=== PATIENT | male | born 1965 | race Caucasian/White ===

== ENCOUNTER → 2019-04-25 | Outpatient (REF) | payer OTHER, MEDICAID ==
[2019-04-25 13:28] LABS: BASO # 0.1 10^3/uL (0.0-0.2); BASO % 0.7 % (0.0-1.0); EOS # 0.2 10^3/uL (0.0-0.50); EOS % 1.6 % (0.0-3.0); HEMATOCRIT 48.3 % (42.0-52.0); HEMOGLOBIN 15.9 g/dl (13.5-17.5); LYMPH # 3.7 10^3/uL (1.5-4.5); LYMPH % 38.7 % (24.0-44.0); MEAN CORPUSCULAR HEMOGLOBIN 30.9 pg (27.0-33.0); MEAN CORPUSCULAR HGB CONC 32.9 g/dl (32.0-36.5); MEAN CORPUSCULAR VOLUME 93.8 fl (80.0-96.0); MONO # 0.9 10^3/uL (0.0-0.8); NEUTROPHILS # 4.7 10^3/uL (1.8-7.7); NEUTROPHILS % 49.7 % (36.0-66.0); PLATELET COUNT, AUTOMATED 350 10^3/uL (150-450); RED BLOOD COUNT 5.15 10^6/uL (4.30-6.10); WHITE BLOOD COUNT 9.5 10^3/uL (4.0-10.0)
[2019-04-25 13:41] LABS: ALBUMIN 3.6 GM/DL (3.2-5.2); ALT/SGPT 29 U/L (12-78); BILIRUBIN,TOTAL 0.2 MG/DL (0.2-1.0); BLOOD UREA NITROGEN 15 MG/DL (7-18); CALCIUM LEVEL 9.4 MG/DL (8.5-10.1); CARBON DIOXIDE LEVEL 32 MEQ/L (21-32); CHLORIDE LEVEL 102 MEQ/L (98-107); CHOLESTEROL LEVEL 180 MG/DL (<200); FREE T4 1.11 NG/DL (0.76-1.46); GLOMERULAR FILTRATION RATE > 60.0 (>56); GLUCOSE, FASTING 96 MG/DL (70-100); HDL CHOLESTEROL 36 MG/DL (>40); LDL CHOLESTEROL 103 MG/DL (<100); NON-HDL-C 144 MG/DL; POTASSIUM SERUM 4.3 MEQ/L (3.5-5.1); SODIUM LEVEL 138 MEQ/L (136-145); TOTAL 25(OH) VITAMIN D 11.5 NG/ML (30.0-100.0); TOTAL PROTEIN 7.7 GM/DL (6.4-8.2); TRIGLYCERIDES LEVEL 206 MG/DL (<150)
[2019-04-25 13:46] LABS: HEMOGLOBIN A1c 5.8 %
[2019-05-02 00:06] LABS: Lyme Disease IgG/IgM Antibodie <0.91 ISR (0.00-0.90); Lyme Disease IgM Ab Quantitati <0.80 index (0.00-0.79)
== END ==
LOC: M LAB REF 12:21
PROVIDERS: ATTEND Family Medicine
DX: Z13.228 Encounter for screening for other metabolic disorders (principal); Z12.5 Encounter for screening for malignant neoplasm of prostate; R35.8 Other polyuria; I10 Essential (primary) hypertension

== ENCOUNTER 2019-05-09 12:52 | Emergency (ER) | payer MEDICAID, OTHER ==
[~2019-05-09] VITALS: Ht 182.9 cm; Wt 98.5 kg
[2019-05-09] MEDS ORDERED: CLON-412 (13:09)
[2019-05-09] MEDS ORDERED: ZANTTAB PO (13:09)
[2019-05-09] MEDS ORDERED: LISI10TA4 (13:09)
[2019-05-09] MEDS ORDERED: cloNIDine 0.1 MG TAB PO ONE (15:00)
[2019-05-09] MEDS ORDERED: LISINOPRIL 10 MG TAB PO ONE (15:00)
[2019-05-09] MEDS ORDERED: CLOTCRE3 TOP (15:05)
[2019-05-09] MEDS ORDERED: KEFL500C17 PO (15:05)
[2019-05-09 15:13] LABS: BASO % 0.4 % (0.0-1.0); EOS # 0.1 10^3/uL (0.0-0.50); EOS % 0.9 % (0.0-3.0); HEMATOCRIT 47.1 % (42.0-52.0); LYMPH # 3.3 10^3/uL (1.5-4.5); LYMPH % 33.7 % (24.0-44.0); MEAN CORPUSCULAR HEMOGLOBIN 30.5 pg (27.0-33.0); MEAN CORPUSCULAR VOLUME 89.7 fl (80.0-96.0); MONO # 0.8 10^3/uL (0.0-0.8); MONO % 8.1 % (0.0-5.0); NEUTROPHILS # 5.6 10^3/uL (1.8-7.7); NEUTROPHILS % 56.7 % (36.0-66.0); PLATELET COUNT, AUTOMATED 280 10^3/uL (150-450); RED BLOOD COUNT 5.25 10^6/uL (4.30-6.10); WHITE BLOOD COUNT 9.9 10^3/uL (4.0-10.0)
[2019-05-09 15:22] VITALS: BP 178/120
[2019-05-09 16:02] VITALS: BP 126/94
== END 2019-05-09 16:01 | disposition home or self-care (01) ==
LOC: M ED 12:52
DX: N39.0 Urinary tract infection, site not specified (principal); N48.1 Balanitis; I10 Essential (primary) hypertension; K21.9 Gastro-esophageal reflux disease without esophagitis; Z72.0 Tobacco use; Z79.899 Other long term (current) drug therapy

== ENCOUNTER → 2019-05-15 | Outpatient (REF) | payer OTHER, MEDICAID ==
[~2019-05-15] MED LIST: CLON-412; CLOTCRE3 TOP; KEFL500C17 PO; LISI10TA4; ZANTTAB PO
[2019-05-15 13:53] LABS: APPEARANCE, URINE CLEAR (CLEAR); BACTERIA, URINE AUTO NEGATIVE (NEGATIVE); BILIRUBIN, URINE AUTO NEGATIVE (NEGATIVE); BLOOD, URINE BLOOD 2+ (NEGATIVE); COLOR, URINE YELLOW (YELLOW); GLUCOSE, URINE (UA) AUTO NEGATIVE (NEGATIVE); KETONE, URINE AUTO TRACE mg/dL (NEGATIVE); LEUKOCYTE ESTERASE, URINE AUTO NEGATIVE (NEGATIVE); MUCUS, URINE SMALL (NEGATIVE); NITRITE, URINE AUTO NEGATIVE (NEGATIVE); PROTEIN, URINE AUTO 2+ mg/dL (NEGATIVE); RBC, URINE AUTO 15 /HPF (0-3); SPECIFIC GRAVITY URINE AUTO 1.021 (1.002-1.035); SQUAMOUS EPITHELIAL CELL UR AU 0 /HPF (0-6); UROBILINOGEN, URINE AUTO 0.2 mg/dL (0.0-2.0); WBC, URINE AUTO 2 /HPF (0-3)
== END ==
LOC: M SMT 13:11
PROVIDERS: ATTEND Nurse Practitioner Women's Health
DX: R31.29 Other microscopic hematuria (principal)

== ENCOUNTER → 2019-05-17 | Outpatient (REF) | payer OTHER, MEDICAID | LOC: M LAB REF 16:43 | PROVIDERS: ATTEND Family Medicine | DX: Z13.228 Encounter for screening for other metabolic disorders (principal); Z12.5 Encounter for screening for malignant neoplasm of prostate; R35.8 Other polyuria; I10 Essential (primary) hypertension ==

== ENCOUNTER → 2019-06-28 | Outpatient (CLI) | payer MEDICAID, OTHER ==
[~2019-06-28] MED LIST changes: +ALBU8.5H; +CEFD1CAP8; +COMBAER6; +D 1010004 PO; +FLUT1INH3; +IBUP80TA; +ISOVUE-370 76% 100ML VIAL (Q9967) As Ordered ONE; +LISI-538 PO; +PRED10TA2; +STIO1AER; +ZANT150T40 PO; -ZANTTAB PO
--- NOTE | 2019-06-28 13:33 | REP ---
CT ABDOMEN AND PELVIS WITHOUT AND WITH CONTRAST: 06/28/2019. Clinical history: Urinary frequency. Technique: Precontrast imaging followed by bolus of 100 mL Isovue 370 and rescanning through the abdomen and pelvis at venous and delayed phases with coronal and sagittal reconstructions along with 3-D surface renderings rotated about the longitudinal axis. Findings: CT abdomen: No prior study. The lung bases are clear. Heart not enlarged. There is no hiatal hernia. No pericardial thickening or effusion. Liver and spleen are not enlarged. No hepatic mass, biliary dilatation or ascites. Gallbladder partially contracted. No calcified stone visible. Pancreas and adrenal glands are normal. Stomach with only minimal fluid within. Scattered diverticula within the abdominal portion of the colon without signs of diverticulitis, colitis, stricture or mass. Small bowel loops without abnormal dilatation. There is atherosclerotic calcification of the aorta with a maximum AP diameter just under 3 cm. No saccular aneurysm. No periaortic, retroperitoneal or mesenteric lymphadenopathy. Kidneys show no stone or definite solid mass. There is an upper pole cyst medially on the right about 2.1 cm. There is a small hyperdense cyst on the left best seen on image of 47 of series 201. No abnormal enhancement in this region. No perinephric edema. I see no hydronephrosis, hydroureter or ureteral stone. Bones shows spondylolysis L5 with grade 1 spondylolisthesis of L5 on S1 degenerative disc changes at L3-4 through L5-S1. No compression fractures. Visualized lower ribs intact. CT pelvis: Sacrum, SI joints, pelvis and hips with only minimal degenerative change and no destructive lesion or fracture. Ureters without dilatation or stone. Bladder is without wall thickening, mass, filling defect or stone. There is diverticulosis of the distal left colon and sigmoid without definite diverticulitis. No colitis, stricture or mass. Small bowel loops mostly fluid-filled not abnormally dilated. There are no inflammatory changes about the cecum. No ventral or inguinal hernia nor pelvic adenopathy. CT urogram: Those images show no hydronephrosis or mass effect on the collecting system. Course of the right ureter is seen from proximal to distal portion in the upper pelvis with poor visualization of the left ureter by comparison although no dilatation. No bladder wall thickening mass or stone. Impression: 1. There is no renal, ureteral or bladder stone nor solid mass. 2. Small hyperdense cyst interpolar region of the left kidney and simple cyst upper pole right kidney. No hydronephrosis or hydroureter. No perinephric fluid. Abdomen and pelvis without any acute finding. Electronically Signed by Elmer Spaulding MD 06/28/2019 03:07 P
== END ==
LOC: M RAD 09:43
PROVIDERS: ATTEND Specialist
DX: R35.0 Frequency of micturition (principal); N28.1 Cyst of kidney, acquired
CPT/HCPCS: 74178; Q9967

== ENCOUNTER → 2019-07-26 | Outpatient (CLI) | payer OTHER ==
[~2019-07-26] MED LIST changes: -CEFD1CAP8; -D 1010004 PO; -IBUP80TA; -ISOVUE-370 76% 100ML VIAL (Q9967) As Ordered ONE; -LISI-538 PO; -STIO1AER
[2019-07-26 09:56] LABS: APPEARANCE, URINE CLEAR (CLEAR); BACTERIA, URINE AUTO NEGATIVE (NEGATIVE); BILIRUBIN, URINE AUTO NEGATIVE (NEGATIVE); BLOOD, URINE BLOOD 2+ (NEGATIVE); COLOR, URINE YELLOW (YELLOW); GLUCOSE, URINE (UA) AUTO NEGATIVE (NEGATIVE); KETONE, URINE AUTO TRACE mg/dL (NEGATIVE); LEUKOCYTE ESTERASE, URINE AUTO NEGATIVE (NEGATIVE); MUCUS, URINE SMALL (NEGATIVE); NITRITE, URINE AUTO NEGATIVE (NEGATIVE); PROTEIN, URINE AUTO 1+ mg/dL (NEGATIVE); RBC, URINE AUTO 6 /HPF (0-3); SPECIFIC GRAVITY URINE AUTO 1.023 (1.002-1.035); SQUAMOUS EPITHELIAL CELL UR AU 0 /HPF (0-6); UROBILINOGEN, URINE AUTO 0.2 mg/dL (0.0-2.0); WBC, URINE AUTO 1 /HPF (0-3)
[2019-07-26 09:59] LABS: BASO # 0.1 10^3/uL (0.0-0.2); BASO % 0.4 % (0.0-1.0); EOS # 0.1 10^3/uL (0.0-0.5); EOS % 1.1 % (0.0-3.0); HEMATOCRIT 45.1 % (42.0-52.0); HEMOGLOBIN 15.2 g/dl (13.5-17.5); LYMPH % 24.7 % (24.0-44.0); MEAN CORPUSCULAR HEMOGLOBIN 31.1 pg (27.0-33.0); MEAN CORPUSCULAR HGB CONC 33.7 g/dl (32.0-36.5); MEAN CORPUSCULAR VOLUME 92.2 fl (80.0-96.0); MONO # 1.1 10^3/uL (0.0-0.8); MONO % 8.8 % (0.0-5.0); NEUTROPHILS # 7.9 10^3/uL (1.5-8.5); NEUTROPHILS % 64.7 % (36.0-66.0); PLATELET COUNT, AUTOMATED 286 10^3/uL (150-450); RED BLOOD COUNT 4.89 10^6/uL (4.30-6.10); WHITE BLOOD COUNT 12.2 10^3/uL (4.0-10.0)
[2019-07-26 10:09] LABS: PROTHROMBIN TIME 12.9 SECONDS (11.8-14.0)
[2019-07-26 10:21] LABS: BLOOD UREA NITROGEN 16 MG/DL (7-18); CALCIUM LEVEL 9.4 MG/DL (8.5-10.1); CARBON DIOXIDE LEVEL 29 MEQ/L (21-32); CHLORIDE LEVEL 104 MEQ/L (98-107); CREATININE FOR GFR 1.05 MG/DL (0.70-1.30); GLOMERULAR FILTRATION RATE > 60.0 (>56); GLUCOSE, FASTING 101 MG/DL (70-100); POTASSIUM SERUM 4.4 MEQ/L (3.5-5.1); SODIUM LEVEL 137 MEQ/L (136-145)
--- NOTE | 2019-07-26 19:24 | ECGEPIP ---
[facility] Test Date: 2019-07-26 Pat Name: PJ FARAH Department: Room: - Gender: Male Assistant Restaurant General Manager: MONTY : 1965 Requested By: Winston Minor Order Number: [id number] Reading MD: Leno Vale Measurements Intervals [place] Rate: 85 P: 44 [place]: 118 QRS: 233 QRSD: 145 T: 54 QT: 357 QTc: 425 Interpretive Statements SINUS RHYTHM WITH SHORT [place] INTERVAL INDETERMINATE AXIS RIGHT BUNDLE BRANCH BLOCK LEFT POSTERIOR FASCICULAR BLOCK No prior tracing for comparison Electronically Signed on 07-26-2019 19:23:55 EDT by Leno Vale
== END ==
LOC: M LAB 08:55
PROVIDERS: ATTEND Urology
DX: R31.29 Other microscopic hematuria (principal)

== ENCOUNTER → 2019-07-30 | Outpatient (CLI) | payer OTHER ==
--- NOTE | 2019-07-30 13:04 | REP ---
CHEST X-RAY: THREE VIEWS. HISTORY: Dyspnea. No comparison study. FINDINGS: There is marked hyperinflation consistent with advanced COPD. The upper lobes are particularly hyperinflated and hyperlucent with emphysematous change and oligemia. The pleural angles are sharp. No localized infiltrate is seen. The heart is not enlarged. No significant bony abnormality is seen. IMPRESSION: Findings consistent with advanced emphysema COPD. Hyperinflation, hyperlucency, and oligemia throughout the upper lobes bilaterally. Electronically Signed by Ravindra Kumar MD 07/30/2019 01:08 P
== END ==
LOC: M SMT 11:42
PROVIDERS: ATTEND Physician Assistant
DX: R06.00 Dyspnea, unspecified (principal); R91.8 Other nonspecific abnormal finding of lung field

== ENCOUNTER 2019-08-05 11:21 | Day surgery (SDC) | payer MEDICAID, OTHER ==
[~2019-08-05] VITALS: Ht 182.9 cm; Wt 100.2 kg
[2019-08-05] MEDS ORDERED: ONDANSETRON 4MG/2ML VIAL (J2405) As Ordered ONE (13:59)
[2019-08-05] MEDS ORDERED: dexameTHASONE 4 MG/ML 1ML VIAL (J1100) As Ordered ONE (13:59)
[2019-08-05] MEDS ORDERED: LIDOCAINE 2% INJ 100 MG/5 ML SDV (FOR ANES.) As Ordered ONE (13:59)
[2019-08-05] MEDS ORDERED: ROCURONIUM BROMIDE 50 MG/5 ML VIAL As Ordered ONE ×2 (13:59→14:26)
[2019-08-05] MEDS ORDERED: fentaNYL 100 MCG/2 ML INJECTION (J3010) As Ordered ONE ×2 (13:59→14:27)
[2019-08-05] MEDS ORDERED: PROPOFOL 200 MG/20 ML VIAL As Ordered ONE (13:59)
[2019-08-05] MEDS ORDERED: MIDAZOLAM INJ 2 MG/2 ML VIAL (J2250) As Ordered ONE (13:59)
[2019-08-05] MEDS ORDERED: METOCLOPRAMIDE INJ 10MG/2ML VIAL (J2765) As Ordered ONE (13:59)
[2019-08-05] MEDS ORDERED: SUGAMMADEX SODIUM 500 MG/5 ML VIAL (BRIDION) As Ordered ONE (13:59)
[2019-08-05] MEDS ORDERED: LABETALOL HCL 100 MG/20 ML VIAL As Ordered ONE (14:12)
[2019-08-05] MEDS ORDERED: LIDOCAINE 2% JELLY 6 ML SYRINGE As Ordered ONE (14:12)
[2019-08-05] MEDS ORDERED: ACETAMINOPHEN 1000MG 100ML IV BTL (OFIRMEV) (J0131 PER 10MG) As Ordered ONE (14:18)
[2019-08-05] MEDS ORDERED: ALBUTEROL 6.7GM INHALER **FOR ANES. CART/OMNICELL ONLY As Ordered ONE (14:36)
[2019-08-05] MEDS ORDERED: PERCOCET 5MG/325MG TAB PO PRN (15:15)
[2019-08-05] MEDS ORDERED: ACETAMINOPHEN TAB 650MG DOSE (2X325MG) PO PRN (15:15)
[2019-08-05] MEDS ORDERED: fentaNYL 100 MCG/2 ML INJECTION (J3010) IV PRN (15:15)
[2019-08-05] MEDS ORDERED: ONDANSETRON 4MG/2ML VIAL (J2405) IV PRN (15:15)
[2019-08-05] MEDS ORDERED: LR 1,000 ML IV SCH (15:15)
[2019-08-05] MEDS ORDERED: hydrALAZINE INJ 20 MG/ML VIAL As Ordered ONE (15:23)
[2019-08-05] MEDS: hydrALAZINE INJ 20 MG/ML VIAL IV PRN ×4 (15:25→15:40)
[2019-08-05 15:40] VITALS: BP 140/101
[2019-08-05 16:21] VITALS: BP 170/100
--- NOTE | 2019-08-06 10:41 | RO ---
DATE OF PROCEDURE: 08/05/2019 PREPROCEDURE DIAGNOSIS: Bladder tumor. POSTPROCEDURE DIAGNOSIS: Bladder tumor. PROCEDURE: Cystoscopy, transurethral resection of bladder tumor (less than 2 cm). SURGEON: Cl Lawson. OYSTER PREPARER: None. ANESTHESIA: General. OPERATIVE INDICATIONS: This is a 53-year-old male who was found to have a small patch of a papillary tumors on the anterior wall just inside the bladder neck at 1 o'clock. He was brought to the operating room today for treatment. DESCRIPTION OF PROCEDURE: The patient was brought to the operating room and general anesthesia was induced. Prophylactic antibiotics were infused. He was then placed in a dorsal lithotomy position and prepped and draped in the usual sterile fashion. A rigid cystoscope was inserted into the urethral meatus and advanced into the bladder. The bladder was thoroughly examined both a 30 and a 70 degree lens and the only abnormality seen was a very small patch of papillary tumors at 1 o'clock just inside the bladder neck. The cystoscope was then removed and the resectoscope was inserted into the urethral meatus and advanced into the bladder using the visual stapling machine operator. Then using a Gyrus loop the patch of tumors was completely resected. The base of resection was cauterized using a coagulation current. Once there was good hemostasis the specimen was extracted from the bladder and then the bladder was then emptied of all fluids and this marked the conclusion of the procedure. The resectoscope was then removed and then the patient was taken out of dorsal lithotomy position, awakened from anesthesia and transported to recovery room in stable condition. ESTIMATED BLOOD LOSS: 5 mL. COMPLICATIONS: None. SPECIMENS: Bladder tumors. PLAN: The patient will followup in the clinic in approximately 1 week for pathology results. RHINA
== END 2019-08-05 16:29 | disposition home or self-care (01) ==
LOC: M SDC 11:21
PROVIDERS: ATTEND Urology
DX: D49.4 Neoplasm of unspecified behavior of bladder (principal); I10 Essential (primary) hypertension; J44.9 Chronic obstructive pulmonary disease, unspecified; F17.210 Nicotine dependence, cigarettes, uncomplicated; Z79.51 Long term (current) use of inhaled steroids; Z79.52 Long term (current) use of systemic steroids; Z79.899 Other long term (current) drug therapy
CPT/HCPCS: 52234; 88305; J0131; J0690; J1100; J2250; J2405; J2765; J3010

== ENCOUNTER → 2019-08-22 | Outpatient (CLI) | payer OTHER ==
--- NOTE | 2019-08-22 08:26 | PFTRPT ---
Height: 71.00 Inches Weight: 220.00 Lbs BSA: 2.20 Diagnosis: R06.00 DATE OF PROCEDURE: 08/22/2019 ORDERED BY: Dr. Nic Oseguera Spirometry: Pre and post bronchodilator study of excellent technical quality. Forced vital capacity reduced. FEV1 out of proportion. Obstructive index is, therefore, reduced. Flow Volume Loop: Expiratory limb of the flow volume loop consistent with flow rate limitation. No significant bronchodilator response identified. Lung Volumes: Total lung capacity elevated. Residual volume is consistent with significant air trapping. Diffusing Capacity: Diffusing capacity severely reduced and does not correct for alveolar volume. Hemoglobin: Hemoglobin acceptable at 12.9. Airway Mechanics: Airway resistance and conductance are normal. IMPRESSION: Severe obstructive ventilatory impairment with underlying air trapping and suspected emphysema. No bronchodilator response. Please correlate clinically. MTDD
== END ==
LOC: M CARPUL 07:20
PROVIDERS: ATTEND Internal Medicine Pulmonary Disease
DX: R06.00 Dyspnea, unspecified (principal)

== ENCOUNTER 2019-10-06 05:13 | Emergency (ER) | payer OTHER ==
[~2019-10-06] VITALS: Ht 182.9 cm; Wt 100.0 kg
[2019-10-06] MEDS ORDERED: LISI-538 PO (05:23)
[2019-10-06] MEDS ORDERED: STIO1AER (05:23)
[2019-10-06] MEDS ORDERED: D 1010004 PO (05:23)
[2019-10-06] MEDS ORDERED: IBUP80TA (05:23)
[2019-10-06] MEDS ORDERED: CEFD1CAP8 (05:23)
[2019-10-06 06:03] LABS: BASO % 0.3 % (0.0-1.0); EOS % 0.2 % (0.0-3.0); HEMATOCRIT 40.9 % (42.0-52.0); HEMOGLOBIN 13.7 g/dl (13.5-17.5); LYMPH # 1.8 10^3/uL (1.5-5.0); LYMPH % 15.2 % (24.0-44.0); MEAN CORPUSCULAR HEMOGLOBIN 31.5 pg (27.0-33.0); MEAN CORPUSCULAR HGB CONC 33.5 g/dl (32.0-36.5); MONO # 0.8 10^3/uL (0.0-0.8); MONO % 7.1 % (0.0-5.0); NEUTROPHILS # 9.1 10^3/uL (1.5-8.5); NEUTROPHILS % 76.8 % (36.0-66.0); PLATELET COUNT, AUTOMATED 337 10^3/uL (150-450); RED BLOOD COUNT 4.35 10^6/uL (4.30-6.10); WHITE BLOOD COUNT 11.9 10^3/uL (4.0-10.0)
--- NOTE | 2019-10-06 06:10 | REPVR ---
PROCEDURE INFORMATION: Exam: CT Head Without Contrast Exam date and time: 10/06/2019 6:00 AM Clinical history: 53 years old, male; Syncope and collapse TECHNIQUE: Imaging protocol: Computed tomography of the head without contrast. Radiation optimization: All CT scans at this facility use at least one of these dose optimization techniques: automated exposure control; mA and/or kV adjustment per patient size (includes targeted exams where dose is matched to clinical indication); or iterative reconstruction. COMPARISON: No relevant prior studies available. FINDINGS: Brain: Diffuse mild cerebral age related volume loss. Mild patchy low attenuation in the white matter compatible with mild chronic small vessel ischemic disease. No midline shift, mass, fluid collection, or evidence of hemorrhage. Ventricles: Ventricular enlargement proportional to volume loss. Bones/joints: Unremarkable. No acute fracture. Sinuses: Visualized sinuses are unremarkable. No fluid levels. Mastoid air cells: Visualized mastoid air cells are well aerated. Soft tissues: Unremarkable. Vasculature: Left MCA 1.4 cm aneurysm. IMPRESSION: 1. Mild involutional changes, no acute intracranial abnormality. 2. Left MCA 1.4 cm aneurysm. Recommend CTA followup. Electronically signed by: Brian Padron On 10/06/2019 06:10:14 AM
[2019-10-06 06:14] VITALS: BP 174/120
[2019-10-06 06:22] LABS: BLOOD UREA NITROGEN 13 MG/DL (7-18); CALCIUM LEVEL 8.3 MG/DL (8.5-10.1); CARBON DIOXIDE LEVEL 28 MEQ/L (21-32); CHLORIDE LEVEL 103 MEQ/L (98-107); CK-MB VALUE MASS 2.7 NG/ML (<3.6); CPK CREATINE PHOSPHOKINASE 116 U/L (39-308); CREATININE FOR GFR 1.06 MG/DL (0.70-1.30); GLOMERULAR FILTRATION RATE > 60.0 (>56); GLUCOSE, FASTING 173 MG/DL (70-100); MB/CK RELATIVE INDEX 2.33 (< OR =4); POTASSIUM SERUM 3.8 MEQ/L (3.5-5.1); SODIUM LEVEL 140 MEQ/L (136-145); TROPONIN I < 0.02 NG/ML (< 0.10)
[2019-10-06] MEDS ORDERED: POTASSIUM CHLORIDE 10 MEQ SR TABLET PO ONE (06:30)
[2019-10-06] MEDS ORDERED: ISOVUE-370 76% 100ML VIAL (Q9967) As Ordered ONE (06:31)
[2019-10-06] MEDS ORDERED: ADACEL/BOOSTRIX VACCINE (DIPHTH/PERTUSS/ACELL/TETANUS)0.5ML SYR (90715) IM ONE (07:00)
[2019-10-06] MEDS ORDERED: cloNIDine 0.1 MG TAB PO ONE (07:00)
--- NOTE | 2019-10-06 07:02 | REPVR ---
PROCEDURE INFORMATION: Exam: CT Angiography Head With Contrast Exam date and time: 10/06/2019 6:41 AM Clinical history: 53 years old, male; Syncope and collapse; Additional info: Syncope, aneurysm TECHNIQUE: Imaging protocol: Computed tomography angiography of the head with intravenous contrast. 3D rendering: MIP reconstructed images were created and reviewed. Radiation optimization: All CT scans at this facility use at least one of these dose optimization techniques: automated exposure control; mA and/or kV adjustment per patient size (includes targeted exams where dose is matched to clinical indication); or iterative reconstruction. Contrast material: ISOVUE 370; Contrast volume: 75 ml; Contrast route: IV; COMPARISON: CT Head without contrast 10/06/2019 5:58 AM FINDINGS: Right internal carotid artery: Unremarkable. Intracranial segment is patent with no significant stenosis. No aneurysm. Right anterior cerebral artery: Unremarkable. No occlusion or significant stenosis. No aneurysm. Right middle cerebral artery: Unremarkable. No occlusion or significant stenosis. No aneurysm. Right posterior cerebral artery: Unremarkable. No occlusion or significant stenosis. No aneurysm. Right vertebral artery: Unremarkable. No occlusion or significant stenosis. No aneurysm. Left internal carotid artery: Unremarkable. Intracranial segment is patent with no significant stenosis. No aneurysm. Left anterior cerebral artery: Unremarkable. No occlusion or significant stenosis. No aneurysm. Left middle cerebral artery: Distal left M1 aneurysm protruding caudally toward the anteromedial left temporal lobe with an ovoid configuration measuring approximately 12 mm in length and 6 x 6 mm in diameter toward the tip. Left posterior cerebral artery: Unremarkable. No occlusion or significant stenosis. No aneurysm. Left vertebral artery: Unremarkable. No occlusion or significant stenosis. No aneurysm. Basilar artery: Unremarkable. No occlusion or significant stenosis. No aneurysm. HEAD: Sinuses: Left maxillary sinus mucosal thickening and near-complete opacification of the left sphenoid sinus. IMPRESSION: 1. Large aneurysm protruding caudally from the distal left M1 segment toward the anteromedial left temporal lobe measuring 6 x 6 x 12 mm. 2. Left maxillary and left sphenoid sinus disease. 3. Otherwise negative CTA head. Electronically signed by: Ashu Ontiveros On 10/06/2019 07:02:27 AM
[2019-10-06 07:25] VITALS: BP 195/113
--- NOTE | 2019-10-06 08:25 | REP ---
Portable chest x-ray: Single view. History: Syncope. Comparison chest x-ray: July 30, 2019. A cyst findings: The lungs overall are hyperinflated. No infiltrate is seen. Emphysematous changes and oligemia are noted in the upper lung zones. There is some mild interstitial fibrotic changes in the bases. The heart is not enlarged. No focal infiltrate. Monitoring electrodes are seen. Impression: Evidence of COPD. No focal infiltrate. Electronically Signed by Ravindra Kumar MD 10/06/2019 08:17 A
--- NOTE | 2019-10-06 12:15 | ECGEPIP ---
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
== END 2019-10-06 08:00 | disposition left against medical advice (07) ==
LOC: M ED 05:13
DX: R55 Syncope and collapse (principal); E87.6 Hypokalemia; S01.81XA Laceration without foreign body of other part of head, initial encounter; W18.39XA Other fall on same level, initial encounter; Y92.018 Other place in single-family (private) house as the place of occurrence of the external cause; I67.1 Cerebral aneurysm, nonruptured; I45.10 Unspecified right bundle-branch block; I10 Essential (primary) hypertension; J44.9 Chronic obstructive pulmonary disease, unspecified; K21.9 Gastro-esophageal reflux disease without esophagitis; Z79.899 Other long term (current) drug therapy; F17.210 Nicotine dependence, cigarettes, uncomplicated
CPT/HCPCS: 12002; 70450; 70496; 71045; 80047; 80048; 82550; 82553; 83605; 84443; 85025; 90471; 90715; 93005; 93041; 94760; 99291; Q9967

== ENCOUNTER → 2019-12-03 | Outpatient (CLI) | payer OTHER ==
[~2019-12-03] MED LIST changes: +CEFD1CAP8; +D 1010004 PO; +IBUP80TA; +LISI-538 PO; +STIO1AER
--- NOTE | 2019-12-04 06:16 | REP ---
Clinical: Lung screening. History smoking. Comparison: None Technique: Axial low-dose noncontrast images from the thoracic inlet to the upper abdomen using lung screening technique. Findings: The lung sloan demonstrate advanced emphysematous disease. No consolidation, significant nodule or mass lesion is appreciated. No pleural effusion/reaction or pneumothorax. Tracheobronchial tree is patent. Mediastinum demonstrates mild atherosclerotic changes of the coronary arteries without cardiomegaly. Impression: Lung-RADS category I. Advanced emphysematous disease. No nodule or suspicious abnormality. Electronically Signed by Isac Webb MD 12/04/2019 06:08 A
== END ==
LOC: M RAD 14:43
PROVIDERS: ATTEND Physician Assistant
DX: Z12.2 Encounter for screening for malignant neoplasm of respiratory organs (principal); F17.218 Nicotine dependence, cigarettes, with other nicotine-induced disorders

== ENCOUNTER → 2020-01-07 | Outpatient (CLI) | payer OTHER ==
[2020-01-07 15:52] LABS: BASO # 0.1 10^3/uL (0.0-0.2); BASO % 0.5 % (0.0-1.0); EOS # 0.4 10^3/uL (0.0-0.5); EOS % 3.7 % (0.0-3.0); HEMATOCRIT 46.4 % (42.0-52.0); HEMOGLOBIN 15.7 g/dl (13.5-17.5); LYMPH # 3.2 10^3/uL (1.5-5.0); LYMPH % 32.5 % (24.0-44.0); MEAN CORPUSCULAR HEMOGLOBIN 30.8 pg (27.0-33.0); MEAN CORPUSCULAR HGB CONC 33.8 g/dl (32.0-36.5); MEAN CORPUSCULAR VOLUME 91.2 fl (80.0-96.0); MONO # 0.8 10^3/uL (0.0-0.8); MONO % 8.5 % (0.0-5.0); NEUTROPHILS # 5.3 10^3/uL (1.5-8.5); NEUTROPHILS % 54.5 % (36.0-66.0); PLATELET COUNT, AUTOMATED 283 10^3/uL (150-450); RED BLOOD COUNT 5.09 10^6/uL (4.30-6.10); WHITE BLOOD COUNT 9.7 10^3/uL (4.0-10.0)
[2020-01-07 16:02] LABS: INR 1.02; PROTHROMBIN TIME 13.1 SECONDS (11.8-14.0)
[2020-01-07 16:03] LABS: PARTIAL THROMBOPLASTIN TIME 32.5 SECONDS (25.0-38.4)
[2020-01-07 16:19] LABS: BLOOD UREA NITROGEN 19 MG/DL (7-18); CALCIUM LEVEL 9.2 MG/DL (8.5-10.1); CARBON DIOXIDE LEVEL 26 MEQ/L (21-32); CHLORIDE LEVEL 109 MEQ/L (98-107); CREATININE FOR GFR 0.95 MG/DL (0.70-1.30); GLOMERULAR FILTRATION RATE > 60.0 (>56); GLUCOSE, FASTING 91 MG/DL (70-100); POTASSIUM SERUM 4.6 MEQ/L (3.5-5.1); SODIUM LEVEL 138 MEQ/L (136-145)
== END ==
LOC: M LAB 15:21
PROVIDERS: ATTEND Neurological Surgery
DX: I67.1 Cerebral aneurysm, nonruptured (principal)

== ENCOUNTER → 2020-04-02 | Outpatient (CLI) | payer OTHER ==
[2020-04-02 18:33] LABS: BASO % 0.3 % (0.0-1.0); EOS # 0.3 10^3/uL (0.0-0.5); EOS % 3.5 % (0.0-3.0); HEMATOCRIT 43.2 % (42.0-52.0); HEMOGLOBIN 14.8 g/dl (13.5-17.5); LYMPH % 32.1 % (24.0-44.0); MEAN CORPUSCULAR HEMOGLOBIN 31.4 pg (27.0-33.0); MEAN CORPUSCULAR HGB CONC 34.3 g/dl (32.0-36.5); MEAN CORPUSCULAR VOLUME 91.7 fl (80.0-96.0); MONO # 0.8 10^3/uL (0.0-0.8); MONO % 8.3 % (0.0-5.0); NEUTROPHILS # 5.2 10^3/uL (1.5-8.5); NEUTROPHILS % 55.3 % (36.0-66.0); PLATELET COUNT, AUTOMATED 323 10^3/uL (150-450); RED BLOOD COUNT 4.71 10^6/uL (4.30-6.10); WHITE BLOOD COUNT 9.4 10^3/uL (4.0-10.0)
[2020-04-02 18:45] LABS: INR 0.99; PROTHROMBIN TIME 12.8 SECONDS (11.8-14.0)
[2020-04-02 19:01] LABS: ALBUMIN 3.9 GM/DL (3.2-5.2); ALT/SGPT 21 U/L (12-78); BILIRUBIN,TOTAL 0.7 MG/DL (0.2-1.0); BLOOD UREA NITROGEN 27 MG/DL (7-18); CALCIUM LEVEL 8.8 MG/DL (8.5-10.1); CARBON DIOXIDE LEVEL 23 MEQ/L (21-32); CHLORIDE LEVEL 103 MEQ/L (98-107); CREATININE FOR GFR 1.26 MG/DL (0.70-1.30); GLOMERULAR FILTRATION RATE > 60.0 (>56); GLUCOSE, FASTING 82 MG/DL (70-100); POTASSIUM SERUM 4.1 MEQ/L (3.5-5.1); SODIUM LEVEL 135 MEQ/L (136-145); TOTAL PROTEIN 7.8 GM/DL (6.4-8.2)
== END ==
LOC: M LAB 16:51
PROVIDERS: ATTEND Family Medicine
DX: I67.1 Cerebral aneurysm, nonruptured (principal)

== ENCOUNTER → 2020-05-28 | Outpatient (REF) | payer OTHER, MEDICAID ==
[2020-05-28 15:53] LABS: BASO # 0.1 10^3/uL (0.0-0.2); BASO % 0.6 % (0.0-1.0); EOS # 0.2 10^3/uL (0.0-0.5); EOS % 2.4 % (0.0-3.0); HEMATOCRIT 41.9 % (42.0-52.0); HEMOGLOBIN 14.6 g/dl (13.5-17.5); LYMPH # 2.9 10^3/uL (1.5-5.0); LYMPH % 29.1 % (24.0-44.0); MEAN CORPUSCULAR HEMOGLOBIN 32.3 pg (27.0-33.0); MEAN CORPUSCULAR HGB CONC 34.8 g/dl (32.0-36.5); MEAN CORPUSCULAR VOLUME 92.7 fl (80.0-96.0); MONO # 0.8 10^3/uL (0.0-0.8); NEUTROPHILS # 5.8 10^3/uL (1.5-8.5); NEUTROPHILS % 59.3 % (36.0-66.0); PLATELET COUNT, AUTOMATED 306 10^3/uL (150-450); RED BLOOD COUNT 4.52 10^6/uL (4.30-6.10); WHITE BLOOD COUNT 9.8 10^3/uL (4.0-10.0)
[2020-05-28 16:02] LABS: INR 1.02; PROTHROMBIN TIME 13.1 SECONDS (11.8-14.0)
[2020-05-28 16:20] LABS: ALBUMIN 3.8 GM/DL (3.2-5.2); ALT/SGPT 21 U/L (12-78); BILIRUBIN,TOTAL 0.3 MG/DL (0.2-1.0); BLOOD UREA NITROGEN 22 MG/DL (7-18); CALCIUM LEVEL 9.2 MG/DL (8.5-10.1); CARBON DIOXIDE LEVEL 26 MEQ/L (21-32); CHLORIDE LEVEL 104 MEQ/L (98-107); CREATININE FOR GFR 1.27 MG/DL (0.70-1.30); GLOMERULAR FILTRATION RATE > 60.0 (>56); GLUCOSE, FASTING 84 MG/DL (70-100); POTASSIUM SERUM 4.2 MEQ/L (3.5-5.1); SODIUM LEVEL 137 MEQ/L (136-145); TOTAL PROTEIN 7.3 GM/DL (6.4-8.2)
== END ==
LOC: M LAB REF 15:10
PROVIDERS: ATTEND Family Medicine Addiction Medicine
DX: Z01.812 Encounter for preprocedural laboratory examination (principal); I67.1 Cerebral aneurysm, nonruptured

== ENCOUNTER → 2020-06-02 | Outpatient (CLI) | payer OTHER | LOC: M LABSMTC 11:22 | PROVIDERS: ATTEND Neurological Surgery | DX: Z11.59 Encounter for screening for other viral diseases (principal) | CPT/HCPCS: C9803; U0003 ==

== ENCOUNTER → 2020-12-04 | Outpatient (CLI) | payer OTHER ==
[~2020-12-04] MED LIST changes: -LISI-538 PO; +LISI10TA22; -LISI10TA4; +LISI20TA33 PO
--- NOTE | 2020-12-06 09:05 | REP ---
INDICATION: NICOTINE DEPENDENCE COMPARISON: 12/03/2019, 10/06/2019 TECHNIQUE: Axial noncontrast images from the thoracic inlet to the upper abdomen using low-dose lung screening technique (LDCT). FINDINGS: Advanced COPD/emphysematous changes with minimal scattered scarring again noted. No consolidation, significant nodule or mass lesion. No pleural effusion. No pneumothorax. Tracheobronchial tree is patent. IMPRESSION: Lung-RADS category 1. No suspicious nodule or mass. Chronic emphysematous changes noted. Management recommendations include annual low-dose CT evaluation <Electronically signed by Isac Webb > 12/06/20 0901
== END ==
LOC: M RAD 13:37
PROVIDERS: ATTEND Physician Assistant
DX: Z12.2 Encounter for screening for malignant neoplasm of respiratory organs (principal); F17.218 Nicotine dependence, cigarettes, with other nicotine-induced disorders

== ENCOUNTER → 2021-02-17 | Outpatient (CLI) | payer OTHER | LOC: M LABSMTC 11:28 | PROVIDERS: ATTEND Neurological Surgery | DX: Z01.818 Encounter for other preprocedural examination (principal); Z20.822 Contact with and (suspected) exposure to COVID-19; I67.1 Cerebral aneurysm, nonruptured ==

== ENCOUNTER → 2021-02-17 | Outpatient (CLI) | payer OTHER ==
[2021-02-17 14:16] LABS: BASO % 0.4 % (0.0-1.0); EOS # 0.2 10^3/uL (0.0-0.5); EOS % 2.7 % (0.0-3.0); HEMATOCRIT 44.3 % (42.0-52.0); HEMOGLOBIN 14.9 g/dl (13.5-17.5); LYMPH % 26.4 % (24.0-44.0); MEAN CORPUSCULAR HGB CONC 33.6 g/dl (32.0-36.5); MEAN CORPUSCULAR VOLUME 95.1 fl (80.0-96.0); MONO # 1.1 10^3/uL (0.0-0.8); MONO % 13.6 % (2.0-8.0); NEUTROPHILS # 4.4 10^3/uL (1.5-8.5); NEUTROPHILS % 56.5 % (36.0-66.0); PLATELET COUNT, AUTOMATED 293 10^3/uL (150-450); RED BLOOD COUNT 4.66 10^6/uL (4.30-6.10); WHITE BLOOD COUNT 7.7 10^3/uL (4.0-10.0)
[2021-02-17 14:27] LABS: INR 0.97; PROTHROMBIN TIME 13.1 SECONDS (12.5-14.3)
[2021-02-17 14:29] LABS: PARTIAL THROMBOPLASTIN TIME 44.3 SECONDS (24.2-38.5)
[2021-02-17 14:47] LABS: BLOOD UREA NITROGEN 14 MG/DL (7-18); CALCIUM LEVEL 9.4 MG/DL (8.5-10.1); CARBON DIOXIDE LEVEL 31 MEQ/L (21-32); CHLORIDE LEVEL 101 MEQ/L (98-107); CREATININE FOR GFR 1.29 MG/DL (0.70-1.30); GLOMERULAR FILTRATION RATE > 60.0 (>56); GLUCOSE, FASTING 104 MG/DL (70-100); POTASSIUM SERUM 3.8 MEQ/L (3.5-5.1); SODIUM LEVEL 136 MEQ/L (136-145)
== END ==
LOC: M PLALAB 11:17
PROVIDERS: ATTEND Neurological Surgery
DX: I67.1 Cerebral aneurysm, nonruptured (principal)

== ENCOUNTER → 2021-03-06 | Outpatient (CLI) | payer OTHER | LOC: M LABSMTC 09:47 | PROVIDERS: ATTEND Neurological Surgery | DX: Z01.812 Encounter for preprocedural laboratory examination (principal); Z20.822 Contact with and (suspected) exposure to COVID-19 ==

== ENCOUNTER → 2021-06-24 | Outpatient (CLI) | payer OTHER ==
[2021-06-24 12:49] LABS: BASO # 0.1 10^3/uL (0.0-0.2); BASO % 0.5 % (0.0-1.0); EOS # 0.1 10^3/uL (0.0-0.5); EOS % 1.3 % (0.0-3.0); HEMATOCRIT 46.4 % (42.0-52.0); HEMOGLOBIN 15.5 g/dl (13.5-17.5); LYMPH % 31.2 % (24.0-44.0); MEAN CORPUSCULAR HEMOGLOBIN 31.7 pg (27.0-33.0); MEAN CORPUSCULAR HGB CONC 33.4 g/dl (32.0-36.5); MEAN CORPUSCULAR VOLUME 94.9 fl (80.0-96.0); MONO # 0.8 10^3/uL (0.0-0.8); MONO % 8.1 % (2.0-8.0); NEUTROPHILS # 5.6 10^3/uL (1.5-8.5); NEUTROPHILS % 58.6 % (36.0-66.0); PLATELET COUNT, AUTOMATED 314 10^3/uL (150-450); RED BLOOD COUNT 4.89 10^6/uL (4.30-6.10); WHITE BLOOD COUNT 9.6 10^3/uL (4.0-10.0)
[2021-06-24 12:58] LABS: INR 0.91; PROTHROMBIN TIME 12.6 SECONDS (12.7-14.5)
== END ==
LOC: M LAB 11:51
PROVIDERS: ATTEND Physician Assistant
DX: I67.1 Cerebral aneurysm, nonruptured (principal)

== ENCOUNTER → 2021-09-18 | Outpatient (CLI) | payer OTHER | LOC: M LABSMTC 10:12 | PROVIDERS: ATTEND Neurological Surgery | DX: Z20.822 Contact with and (suspected) exposure to COVID-19 (principal) ==

== ENCOUNTER 2024-12-06 14:38 | Emergency (ER) | payer OTHER ==
[~2024-12-06] VITALS: Ht 180.3 cm; Wt 97.4 kg
[~2024-12-06 14:38] MED LIST changes: -CEFD1CAP8; +CEFD1CAP9
[2024-12-06 14:41] VITALS: TEMP 97.8
[2024-12-06 15:30] LABS: BASO # 0.1 10^3/uL (0.0-0.2); BASO % 0.6 % (0.0-1.0); EOS # 0.1 10^3/uL (0.0-0.5); HEMATOCRIT 44.5 % (42.0-52.0); HEMOGLOBIN 15.1 g/dl (13.5-17.5); LYMPH % 25.3 % (24.0-44.0); MEAN CORPUSCULAR HGB CONC 33.9 g/dl (32.0-36.5); MEAN CORPUSCULAR VOLUME 91.4 fl (80.0-96.0); MONO # 0.7 10^3/uL (0.0-0.8); MONO % 8.6 % (2.0-8.0); NEUTROPHILS # 5.1 10^3/uL (1.5-8.5); NEUTROPHILS % 64.1 % (36.0-66.0); PLATELET COUNT, AUTOMATED 283 10^3/uL (150-450); RED BLOOD COUNT 4.87 10^6/uL (4.30-6.10)
[2024-12-06 15:56] LABS: BLOOD UREA NITROGEN 17 MG/DL (9-23); CALCIUM LEVEL 9.6 MG/DL (8.3-10.6); CARBON DIOXIDE LEVEL 30 MMOL/L (20-31); CHLORIDE LEVEL 102 MMOL/L (98-107); CK-MB VALUE MASS 7.8 NG/ML (<3.6); CREATININE FOR GFR 0.97 MG/DL (0.70-1.30); GLOMERULAR FILTRATION RATE > 60.0 (>49); GLUCOSE, FASTING 93 MG/DL (74-106); MB/CK RELATIVE INDEX 12.18 (< OR =4); POTASSIUM SERUM 4.5 MMOL/L (3.5-5.1); SODIUM LEVEL 138 MMOL/L (136-145)
[2024-12-06 15:59] LABS: FREE T4 1.18 NG/DL (0.89-1.76); THYROID STIMULATING HORMONE 4.117 uIU/ML (0.55-4.78)
[2024-12-06] MEDS: IPRATROPIUM 0.5MG/ALBUTEROL 2.5MG INH SOL UD 3ML (DUONEB) NEB ONE (16:12)
[2024-12-06 16:13] VITALS: BP 230/130
[2024-12-06] MEDS: cloNIDine 0.1MG TABLET PO ONE (16:13)
[2024-12-06] MEDS: dexAMETHasone 20MG/5ML VIAL IV ONE (16:14)
[2024-12-06 16:23] VITALS: O2SAT 99
[2024-12-06] MEDS ORDERED: LOSARTAN 25 MG TAB PO ONE (16:35)
[2024-12-06 17:30] VITALS: BP 170/110
== END 2024-12-06 18:11 | disposition home or self-care (01) ==
LOC: M ED 14:38
DX: I10 Essential (primary) hypertension (principal); I44.5 Left posterior fascicular block; I45.10 Unspecified right bundle-branch block; Z79.51 Long term (current) use of inhaled steroids; Z79.2 Long term (current) use of antibiotics; Z79.1 Long term (current) use of non-steroidal anti-inflammatories (NSAID); Z79.52 Long term (current) use of systemic steroids; Z79.899 Other long term (current) drug therapy
CPT/HCPCS: 36415; 70450; 71045; 80048; 82550; 82553; 83880; 84439; 84443; 84484; 85025; 93005; 93041; 94760; 96374; 99215; 99285; 99406; J1100